=== PATIENT | male | born 1985 | race Caucasian/White ===

== ENCOUNTER 2019-01-10 17:54 | Inpatient (IN) | payer MEDICAID ==
[2019-01-10 18:45] LABS: HEMATOCRIT 40.2 % (42.0-52.0); HEMOGLOBIN 13.4 g/dl (14.0-18.0); MEAN CORPUSCULAR HEMOGLOBIN 32.7 pg (29.0-33.0); MEAN CORPUSCULAR HGB CONC 33.3 g/dl (32.0-37.0); MEAN PLATELET VOLUME 10.5 fl (7.4-10.4); PLATELET COUNT 106 10^3/UL (140-415); POSITIVE DIFF @See below; RED CELL DISTRIBUTION WIDTH 13.5 % (11.5-14.5)
[2019-01-10 18:45] LABS: WHITE BLOOD COUNT 5.4 10^3/ul (4.8-10.8)
[2019-01-10] MEDS: SOD CHLORIDE 0.9% 1,000 ML IV (18:55)
[2019-01-10 18:56] LABS: ADD MAN DIFF? YES
[2019-01-10 19:05] LABS: ALANINE AMINOTRANSFERASE 48 IU/L (13-69); ALBUMIN 4.7 g/dl (3.3-4.9); ALBUMIN/GLOBULIN RATIO 0.87; ALKALINE PHOSPHATASE 183 IU/L (42-121); ANION GAP 14 (5-13); ASPARTATE AMINO TRANSFERASE 139 IU/L (15-46); BILIRUBIN,INDIRECT 0.8 mg/dl (0-1.1); BILIRUBIN,TOTAL 0.8 mg/dl (0.2-1.3); BLOOD UREA NITROGEN 14 mg/dl (7-20); CALCIUM 9.6 mg/dl (8.4-10.2); CARBON DIOXIDE 25 mmol/L (21-31); CHLORIDE 103 mmol/L (97-110); CREATININE 0.83 mg/dl (0.61-1.24); Estimated GFR > 60 mL/min (>60); GLUCOSE 106 mg/dl (70-220); POTASSIUM 3.5 mmol/L (3.5-5.1); SODIUM 142 mmol/L (135-144); TOTAL PROTEIN 10.1 g/dl (6.1-8.1)
[2019-01-10 19:06] LABS: ETHANOL < 10.0 mg/dl (0-0)
[2019-01-10 19:09] LABS: ADD UMIC YES; UR ASCORBIC ACID 40 mg/dL (NEGATIVE); UR BACTERIA FEW /HPF (NONE SEEN); UR BILIRUBIN (Dip) NEGATIVE (NEGATIVE); UR BLOOD (Dip) NEGATIVE (NEGATIVE); UR CLARITY SLIGHTLY CLOUDY (CLEAR); UR COLOR AMBER (YELLOW); UR GLUCOSE (Dip) NEGATIVE (NEGATIVE); UR KETONES (Dip) TRACE mg/dL (NEGATIVE); UR LEUKOCYTE ESTERASE (Dip) NEGATIVE Leu/ul (NEGATIVE); UR MUCUS MANY /HPF (NONE SEEN); UR NITRITE (Dip) NEGATIVE (NEGATIVE); UR RBC 1 /HPF (0-5); UR SPECIFIC GRAVITY (Dip) 1.034 (1.003-1.030); UR TOTAL PROTEIN (Dip) 2+ mg/dl (NEGATIVE); UR UROBILINOGEN (Dip) 2+ mg/dL (NEGATIVE); UR WBC 2 /HPF (0-5)
[2019-01-10 19:20] LABS: AMPHETAMINE/METHAMPHETAMINE Negative (NEGATIVE); BARBITURATES Negative (NEGATIVE); BENZODIAZEPINES Negative (NEGATIVE); CANNABINOIDS Negative (NEGATIVE); COCAINE Negative (NEGATIVE); OPIATES Negative (NEGATIVE)
[2019-01-10] MEDS: LORAZEPAM 2 MG INJ IV ×4 (19:36→23:55)
[2019-01-10 19:45] LABS: BAND NEUTROPHILS #M 0.1 10^3/ul (0.0-0.6); BAND NEUTROPHILS % (M) 3 % (0-4); EOSINOPHILS % (M) 1 % (0-7); ERYTHROBLAST% (NRBC) (M) 1 % (0-0); GIANT THROMBO% (M) 1 % (0-0); LYMPHOCYTES #M 1.7 10^3/ul (0.8-2.9); LYMPHOCYTES % (M) 32 % (15-51); MONOCYTE #M 0.4 10^3/ul (0.3-0.9); MONOCYTES % (M) 9 % (0-11); PLATELET ESTIMATE DECREASED; POLYCHROMASIA 1+ (0-0); PROMYELOCYTES % (M) 1 % (0-0); SEG NEUT #M 2.9 10^3/ul (1.6-7.5); SEGMENTED NEUTROPHILS (M) % 54 % (39-77); SMUDGE%M 3 % (0-0)
[2019-01-10 22:47] LABS: CREATINE KINASE 918 IU/L (23-200)
[2019-01-10 22:59] LABS: CK INDEX 0.4
[2019-01-10] MEDS ORDERED: ACETAMINOPHEN 325 MG TAB PO ×2 (23:00→23:30)
[2019-01-10] MEDS ORDERED: ONDANSETRON 4 MG INJ IV ×2 (23:00→23:30)
[2019-01-10] MEDS: CHLORDIAZEPOXIDE 25 MG CAP PO (23:01)
[2019-01-10 23:11] LABS: TROPONIN-I 0.013 ng/ml (0.000-0.120)
[2019-01-10] MEDS ORDERED: NACL 0.9% 3 ML SYG IV (23:30)
[2019-01-10] MEDS ORDERED: BISACODYL (EC) 5 MG TAB PO (23:30)
[2019-01-10] MEDS ORDERED: LORAZEPAM 2 MG INJ IV (23:30)
[2019-01-10] MEDS ORDERED: DOCUSATE SODIUM 100 MG CAP PO (23:30)
[2019-01-10] MEDS: HALOPERIDOL 5 MG INJ IM (23:55)
[2019-01-11] MEDS ORDERED: LORAZEPAM 2 MG INJ IV ×2 (00:30→10:30)
[2019-01-11 01:01] LABS: AMMONIA 32 umol/l (9-30)
[2019-01-11] MEDS: DIAZEPAM 5 MG/ML SYG IV ×2 (01:30→05:35)
[2019-01-11] MEDS ORDERED: DIAZEPAM 5 MG/ML SYG IV (03:00)
[2019-01-11] MEDS ORDERED: CHLORDIAZEPOXIDE 25 MG CAP PO ×2 (04:00→12:00)
[2019-01-11] MEDS: MULTIVITAMINS 10 ML, THIAMINE 100 MG, FOLIC ACID 1 MG in SOD CHLORIDE 0.9% 1,000 ML IVPB (04:46)
[2019-01-11 05:18] LABS: ADD MAN DIFF? NO
[2019-01-11 05:34] LABS: ABNORMAL IP MESSAGE 1; BASOPHILS % 0.7 % (0.0-2.0); EOSINOPHILS # 0.1 10^3/ul (0.0-0.5); EOSINOPHILS % 1.2 % (0.0-7.0); HEMATOCRIT 35.3 % (42.0-52.0); HEMOGLOBIN 11.6 g/dl (14.0-18.0); LYMPHOCYTES # 1.3 10^3/ul (0.8-2.9); LYMPHOCYTES % 31.6 % (15.0-51.0); MEAN CORPUSCULAR HEMOGLOBIN 32.7 pg (29.0-33.0); MEAN CORPUSCULAR HGB CONC 32.9 g/dl (32.0-37.0); MEAN CORPUSCULAR VOLUME 99.4 fl (82.0-101.0); MEAN PLATELET VOLUME 11.5 fl (7.4-10.4); MONOCYTE # 1.1 10^3/ul (0.3-0.9); MONOCYTES % 26.5 % (0.0-11.0); NEUTROPHIL # 1.6 10^3/ul (1.6-7.5); NEUTROPHILS % 39.5 % (39.0-77.0); PLATELET COUNT 90 10^3/UL (140-415); POSITIVE DIFF @See below; RED BLOOD COUNT 3.55 10^6/ul (4.70-6.10); RED CELL DISTRIBUTION WIDTH 13.5 % (11.5-14.5)
[2019-01-11 05:34] LABS: WHITE BLOOD COUNT 4.1 10^3/ul (4.8-10.8)
[2019-01-11 05:51] LABS: CREATINE KINASE 841 IU/L (23-200)
[2019-01-11 05:54] LABS: ALANINE AMINOTRANSFERASE 41 IU/L (13-69); ALBUMIN 3.9 g/dl (3.3-4.9); ALBUMIN/GLOBULIN RATIO 0.88; ALKALINE PHOSPHATASE 107 IU/L (42-121); ANION GAP 13 (5-13); ASPARTATE AMINO TRANSFERASE 126 IU/L (15-46); BILIRUBIN,INDIRECT 0.9 mg/dl (0-1.1); BILIRUBIN,TOTAL 0.9 mg/dl (0.2-1.3); BLOOD UREA NITROGEN 12 mg/dl (7-20); CALCIUM 8.4 mg/dl (8.4-10.2); CARBON DIOXIDE 24 mmol/L (21-31); CHLORIDE 108 mmol/L (97-110); CHOL/HDL RATIO 3.6 RATIO; CHOLESTEROL 136 mg/dl (100-200); CREATININE 0.56 mg/dl (0.61-1.24); Estimated GFR > 60 mL/min (>60); GLUCOSE 88 mg/dl (70-220); HDL CHOLESTEROL 37 mg/dl (28-63); LDL CHOLESTEROL,CALCULATED 82 mg/dl; POTASSIUM 3.6 mmol/L (3.5-5.1); SODIUM 145 mmol/L (135-144); TOTAL PROTEIN 8.3 g/dl (6.1-8.1); TRIGLYCERIDES 85 mg/dl (0-149)
[2019-01-11 06:03] LABS: CK INDEX 0.2; CK-MB 2.03 ng/ml (0.0-2.4); TROPONIN-I 0.022 ng/ml (0.000-0.120)
[2019-01-11] MEDS: DIPHENHYDRAMINE 50 MG INJ IV (06:58)
[2019-01-11 07:10] LABS: HEMOGLOBIN A1C 5.4 % (0-5.9)
[2019-01-11] MEDS ORDERED: MULTIVITAMINS 10 ML, THIAMINE 100 MG, FOLIC ACID 1 MG in SOD CHLORIDE 0.9% 1,000 ML IVPB ×2 (09:00)
[2019-01-11] MEDS: CHLORDIAZEPOXIDE 25 MG CAP PO (10:01)
[2019-01-11] MEDS: SOD CHLORIDE 0.9% 1,000 ML IV (14:36)
[2019-01-12] MEDS: SOD CHLORIDE 0.9% 1,000 ML IV ×2 (00:17→12:12)
[2019-01-12 08:57] LABS: HEMATOCRIT 39.8 % (42.0-52.0); HEMOGLOBIN 12.9 g/dl (14.0-18.0); MEAN CORPUSCULAR HEMOGLOBIN 32.7 pg (29.0-33.0); MEAN CORPUSCULAR HGB CONC 32.4 g/dl (32.0-37.0); PLATELET COUNT 120 10^3/UL (140-415); RED BLOOD COUNT 3.94 10^6/ul (4.70-6.10); RED CELL DISTRIBUTION WIDTH 13.4 % (11.5-14.5)
[2019-01-12 09:17] LABS: ANION GAP 13 (5-13); BLOOD UREA NITROGEN 10 mg/dl (7-20); CALCIUM 8.9 mg/dl (8.4-10.2); CARBON DIOXIDE 25 mmol/L (21-31); CHLORIDE 104 mmol/L (97-110); CREATININE 0.55 mg/dl (0.61-1.24); Estimated GFR > 60 mL/min (>60); GLUCOSE 131 mg/dl (70-220); MAGNESIUM 1.7 mg/dl (1.7-2.5); PHOSPHORUS 3.6 mg/dl (2.5-4.9); POTASSIUM 3.6 mmol/L (3.5-5.1); SODIUM 142 mmol/L (135-144)
[2019-01-12 09:18] LABS: AMMONIA 24 umol/l (9-30)
[2019-01-12 09:21] LABS: ADD MAN DIFF? YES
[2019-01-12 09:24] LABS: CREATINE KINASE 568 IU/L (23-200)
[2019-01-12] MEDS: MULTIVITAMINS 10 ML, THIAMINE 100 MG, FOLIC ACID 1 MG in SOD CHLORIDE 0.9% 1,000 ML IVPB (10:04)
[2019-01-13] MEDS ORDERED: INFLUENZA VIRUS VACCINE 0.5 ML (DISPENSING) IM* (10:00)
== END 2019-01-12 18:30 | disposition home or self-care (01) | DRG 897 ==
LOC: E/R 17:54 → ICU 22:49 → TEL 01-11 14:29
DX: F10.231 Alcohol dependence with withdrawal delirium (principal); D61.818 Other pancytopenia; F10.151 Alcohol abuse with alcohol-induced psychotic disorder with hallucinations
CPT/HCPCS: 36415; 70450; 76705; 80048; 80053; 80061; 80307; 81001; 82140; 82550; 82553; 82962; 83036; 83735; 84100; 84443; 84484; 85025; 93005; 96361; 96374; 96376; 97161; 99291-25

== ENCOUNTER 2019-06-17 20:37 | Emergency (ER) | payer SELFPAY, OTHER, MEDICAID ==
[2019-06-17] MEDS: CHLORDIAZEPOXIDE 25 MG CAP PO (23:35)
== END 2019-06-18 00:18 | disposition home or self-care (01) ==
LOC: E/R 06-18 00:18
DX: F10.239 Alcohol dependence with withdrawal, unspecified (principal)
CPT/HCPCS: 99283